=== PATIENT | female | born 1990 | race Caucasian/White ===

== ENCOUNTER 2022-08-11 15:34 | Emergency (ER) | payer MEDICAID ==
[~2022-08-11] VITALS: Ht 157.5 cm; Wt 61.2 kg
[2022-08-11] MEDS ORDERED: HYDROCODONE/APAP 5/325MG TABLET PO ONE (16:30)
[2022-08-11] MEDS ORDERED: HYDROCODONE/APAP 5/325MG TABLET ONE (16:55)
[2022-08-11] MEDS ORDERED: HYDR-4209 PO (17:42)
--- NOTE | 2022-08-11 17:47 | NUR ---
Patient discharged to home in stable condition. Written and verbal after care instructions given. Patient verbalizes understanding of instruction.
[2022-08-11 17:48] VITALS: BP 114/73
== END 2022-08-11 17:48 | disposition home or self-care (01) ==
LOC: ER 15:37
DX: O26.899 Other specified pregnancy related conditions, unspecified trimester (principal); R10.9 Unspecified abdominal pain; Z79.899 Other long term (current) drug therapy; Z3A.00 Weeks of gestation of pregnancy not specified